=== PATIENT | male | born 1990 | race Caucasian/White ===

== ENCOUNTER → 2022-02-26 13:19 | Outpatient (CLI) | payer OTHER, SELFPAY ==
[2022-02-26 14:26] LABS: COVID19 -Nasal RAPID Negative (Negative)
== END ==
PROVIDERS: PCP Student in an Organized Health Care Education/Training Program; Referring Provider Internal Medicine; Visit Provider Internal Medicine
DX: Z01.818 Encounter for other preprocedural examination (principal)
CPT/HCPCS: 87635; C9803

== ENCOUNTER → 2022-02-27 09:27 | Outpatient (CLI) | payer OTHER, SELFPAY ==
--- NOTE | 2022-03-05 11:26 | PM.PFT.1 ---
Pulmonary Function Test Referral & Results Date Patient Seen: 02/27/22 Requesting provider: Michi Reeves Results: The spirometry demonstrates an FVC of 5.25 L which is 108% of predicted. The FEV1 was measured at 4.26 L which is 107% of predicted. The FEV1/FVC ratio was 81 which is 99% of predicted. Following the administration of bronchodilator there was a 34% improvement in FEF 25-75% Lung volumes show an SVC of 5.22 L which is 111% of predicted. The diffusing capacity was measured at 32.90 which is 122% of predicted. The maximum voluntary ventilation was normal Interpretation: This study demonstrates normal pulmonary function
== END ==
PROVIDERS: PCP Student in an Organized Health Care Education/Training Program; Referring Provider Student in an Organized Health Care Education/Training Program; Visit Provider Student in an Organized Health Care Education/Training Program
DX: J45.909 Unspecified asthma, uncomplicated (principal); J98.8 Other specified respiratory disorders
CPT/HCPCS: 94060; 94726; 94729